=== PATIENT | male | born 1970 | race Caucasian/White ===

== ENCOUNTER 2018-05-08 19:58 | Emergency (ER) | payer OTHER, MEDICAID ==
[~2018-05-08] VITALS: Ht 182.9 cm; Wt 84.4 kg
[2018-05-08 20:01] VITALS: Ht 182.9 cm; Wt 84.4 kg
[2018-05-08 21:55] VITALS: BP 122/70
== END 2018-05-08 21:49 | disposition home or self-care (01) ==
LOC: ED 19:58
DX: S00.31XA Abrasion of nose, initial encounter (principal); M79.672 Pain in left foot; W19.XXXA Unspecified fall, initial encounter; Y93.89 Activity, other specified; Y92.89 Other specified places as the place of occurrence of the external cause; Y99.8 Other external cause status
CPT/HCPCS: 90715